=== PATIENT | female | born 1970 ===

== ENCOUNTER 2016-05-01 10:16 | Outpatient (CLI) | payer OTHER ==
--- NOTE | 2016-05-01 12:47 | DIAGNOSTIC IMAGING REPORT ---
PROCEDURE: XR UPPER GI WITH SBFT INDICATION: Heartburn. Nausea. Abdominal pain. TECHNIQUE: Double contrast study. Fluoroscopy time, 2.2 minutes; 1614.76 mGy. 92 fluoroscopic images (including cinefluoroscopy). Images were acquired over a 1 hour 20-minute time interval COMPARISON: None. FINDINGS: Preliminary senior director creative services view is normal. Pharyngoesophagus is normal. Moderate gastroesophageal reflux. Esophagus is otherwise normal. Stomach and duodenum are normal. Small bowel pattern is normal, including terminal ileum, with normal transit time (1 hour). IMPRESSION: 1. Moderate gastroesophageal reflux. 2. Otherwise negative upper GI and small bowel series.
--- NOTE | 2016-05-01 12:47 | DIAGNOSTIC IMAGING REPORT ---
PROCEDURE: XR UPPER GI WITH SBFT INDICATION: Heartburn. Nausea. Abdominal pain. TECHNIQUE: Double contrast study. Fluoroscopy time, 2.2 minutes; 1614.76 mGy. 92 fluoroscopic images (including cinefluoroscopy). Images were acquired over a 1 hour 20-minute time interval COMPARISON: None. FINDINGS: Preliminary black oxide operator view is normal. Pharyngoesophagus is normal. Moderate gastroesophageal reflux. Esophagus is otherwise normal. Stomach and duodenum are normal. Small bowel pattern is normal, including terminal ileum, with normal transit time (1 hour). IMPRESSION: 1. Moderate gastroesophageal reflux. 2. Otherwise negative upper GI and small bowel series.
[2016-05-04] MEDS ORDERED: AMBIEN10 MG PO (16:45)
[2016-05-04] MEDS ORDERED: PRILOSEC20 MG PO (16:46)
[2016-05-04] MEDS ORDERED: ATIVAN2 MG PO (16:46)
[2016-05-04] MEDS ORDERED: FLUOXETINE HCL60 MG PO (16:47)
[2016-05-04] MEDS ORDERED: TRAZODONE HCL100 MG PO (16:48)
[2016-05-04] MEDS ORDERED: DRONABINOL2.5 MG PO (16:49)
[2016-05-04] MEDS ORDERED: PERCOCET1 TA1 PO (16:50)
[2016-05-04] MEDS ORDERED: SYMBICORT1 AE1 IN (16:50)
== END 2016-05-01 23:00 ==
LOC: XR SRH 10:16
DX: K21.9 Gastro-esophageal reflux disease without esophagitis (principal)

== ENCOUNTER 2016-07-21 18:12 | Emergency (ER) | payer OTHER ==
[~2016-07-21 18:12] MED LIST: AMBIEN10 MG PO; ATIVAN2 MG PO; DRONABINOL2.5 MG PO; FLUOXETINE HCL60 MG PO; PERCOCET1 TA1 PO; PRILOSEC20 MG PO; SYMBICORT1 AE1 IN; TRAZODONE HCL100 MG PO
--- NOTE | 2016-07-21 20:00 | ED NURSING NOTES ---
Clinical Report - Nurses [facility] [address] [place] [address] 07/21/2016 18:15 Patient: HO GOMEZ TRIAGE Triage time 1830. Chief Complaint: PALPITATIONS. --18:48 Neda Cardoso R.N. 18:30 07/21/16. BP: 124/74. HR: 89. RR: 18. O2 saturation: 99% on room air. Temp: 99.4 F. Pain level now: 10/08. --20:09 Neda Cardoso R.N. Weight: 77.1 kg stated. Height/Length: 67 inches Per Patient. BMI: 26.6. --18:29 Neda Cardoso R.N. Medications DULoxetine HCl Oral 120 mg. LORazepam Oral 2 mg. PriLOSEC Oral 20 mg. TraZODone HCl Oral 400 mg. Zolpidem Tartrate Oral 10 mg. --18:38 Neda Cardoso R.N. Systane Ophthalmic. --18:38 Neda Cardoso R.N. Dronabinol Oral (Capsule 2.5 mg), 8 hours. --18:39 Neda Cardoso R.N. Symbicort Inhalation. --18:39 Neda Cardoso R.N. Probiotic Oral. --18:40 Neda Cardoso R.N. Oxycodone-Acetaminophen ER Oral 5/325, prn. --18:41 Neda Cardoso R.N. Wellbutrin Oral 300, daily. --18:41 Neda Cardoso R.N. [id number] Oral. --18:41 Neda Cardoso R.N. Loratadine Oral. --18:42 Neda Cardoso R.N. Allergies Amoxicillin.(nausea) --18:43 Neda Cardoso R.N. Psych medications. (tardive dyskinesia) --18:43 Neda Cardoso R.N. History Historian: significant other and patient. Accompanied by friend. ( patient started on Welbutrin and when she increased the dose from 150 mg to 300 mg she started noticing she felt like she was having heart palpitations). She has had weakness, a cough and difficulty breathing. Reports muscle aches. SOCIAL HX: Smoker- current status unknown. History of drug use: marijuana. Recently used drugs today. NUTRITIONAL RISK ASSESSMENT: The nutritional risk assessment revealed no deficiencies. FUNCTIONAL ASSESSMENT: Functional assessment: no impairments noted. LEARNING NEEDS ASSESSMENT: The learning needs assessment revealed no barriers. SKIN INTEGRITY ASSESSMENT: Skin integrity risk assessment completed. No skin integrity risk identified. --18:48 Neda Cardoso R.N. PROBLEMS: Heart Murmur. Hiatal Hernia. Acid reflux. Staph blepharitis. Tardive dyskinesia. PTSD. Bipolar Disorder. --18:45 Neda Cardoso R.N. ADDITIONAL SURGERIES: Appendectomy. Left knee. --18:45 Neda Cardoso R.N. PHYSICAL ASSESSMENT 18:57 07/21/16. Ambulatory to room. Patient gowned. GENERAL / NEURO / PSYCH: Alert. Appears in no acute distress. Decreased awareness. Mood/affect abnormal. HEENT: No facial asymmetry noted. Mucous membranes are pink. RESPIRATORY: Cough (marijuana). The patient is a smoker. CVS: Capillary refill less than 2 seconds. Pulses within normal limits. GI / : Abdominal distention (patient states she feels full of gas). Normal bowel sounds. Abdominal tenderness. SKIN: Skin intact. Skin is pale. Skin is warm and dry. Normal skin turgor. --18:57 Neda Cardoso R.N. NURSING PROGRESS NOTES EKG time: (1854). EKG was performed by a tech and shown to the ED physician. Call light placed in reach. Side rails up x 1. Bed placed in lowest position. Brakes of bed on. Patient ready for evaluation- ED physician notified. --18:57 Neda Cardoso R.N. EKG time: (19:02). EKG was performed by a tech and shown to the ED physician. --19:02 Aimee Pope 19:40 07/21/2016 Zofran ODT (Ondansetron) PO Oral Disintegrating Tablets 4 mg given. Allergies verified and confirmed 5 rights. --19:40 Neda Cardoso R.N. DISPOSITION / DISCHARGE 20:07 07/21/16. Departure time: 2006. No learning barriers present. Discharge instructions provided and reviewed with the patient and spouse. Patient and spouse verbalized understanding. Written instructions provided in Greenlandic. The patient was discharged home and accompanied by spouse. She left the Emergency Department ambulatory and via private vehicle. Spouse driving. --20:07 Neda Cardoso R.N. 20:05 07/21/16. BP: 118/74. HR: 77. RR: 20. O2 saturation: 99% on room air. Temp: 99.1 F. Pain level now: 08/08. --20:07 Neda Cardoso R.N. Locked/Released at 07/21/2016 20:09 by Neda Cardoso R.N.
--- NOTE | 2016-07-21 20:00 | ED ORDER SUMMARY ---
..... Patient: HO GOMEZ OrderSheet [facility] VisitID: [id number] [address] [place] [address] 46y, F Registration Date/Time: 07/21/2016 ORDER SHEET Weight: 77.1 kg (stated) Allergies: Amoxicillin, Psych medications GENERAL ORDERS: EKG - ER Repeat Stat (18:38 07/21/2016 Cornell MANJARREZ) (Ack 18:46 OSnell) (19:06 IJurca ER Tech1) MEDICATION ORDERS: Zofran ODT PO 4 mg (NOW) (19:39 07/21/2016 TCjoselin R.N. verbal order read back to Cornell MANJARREZ) (19:40 TChapmmelina R.N.) Verbal order read back and verified IV FLUIDS: ORDER SHEET NOTES: [Electronically signed by Neda Cardoso R.N. (20:09 07/21/2016)] [Electronically signed by Cody Pickens MD (16:29 07/23/2016)] [Electronically locked/signed by Neda Cardoso R.N. (20:09 07/21/2016)]
--- NOTE | 2016-07-21 20:00 | ED CLINICAL REPORT ---
Clinical Report - Physicians/Mid Levels [facility] [address] [place] [address] 07/21/2016 18:15 Patient: HO GOMEZ Time Seen: 18:33. Arrived- By private vehicle. Historian- patient and family. HISTORY OF PRESENT ILLNESS Chief Complaint: FLUTTERING FEELING IN CHEST. At its maximum, severity described as moderate. When seen in the E.D., severity described as mild. Modifying factors. Not worsened by anything. This started today Ms Gomez had her Wellbutrin doubled in dosage recently. Since then she has noticed an intermittent fluttery feeling inside her chest. The fluttering last 2 to 10 seconds and occurs 2-3 times per hour. She and her family are concerned that this cold be a heart attack. The patient has had fatigue, a sleep problem, muscle aches and weakness. (The general symptoms above are all old.). Recent medical care: The patient was seen recently by a health care provider. ( Increased Wellburin dose recently). REVIEW OF SYSTEMS No fever, sore throat, cough, difficulty breathing or chest pain. PAST HISTORY PCP: Dr Vann PROBLEMS: Heart Murmur. Hiatal Hernia. Acid reflux. Staph blepharitis. Tardive dyskinesia. PTSD. Bipolar Disorder. ADDITIONAL SURGERIES: Appendectomy. Left knee. ADDITIONAL NOTES The nursing notes have been reviewed. PHYSICAL EXAM Vital Signs: 07/21/2016 20:05 BP: 118/74. HR: 77. RR: 20. O2 saturation: 99%. Temp: 99.1 F. Pain level now: 08/08. 07/21/2016 18:47 BP: 124/74. HR: 89. RR: 18. O2 saturation: 99%. Temp: 99.4 F. Pain level now: 09/08. 07/21/2016 18:30 BP: 124/74. HR: 89. RR: 18. O2 saturation: 99%. Temp: 99.4 F. Pain level now: 10/08. Appearance: Alert. No acute distress. Eyes: Pupils equal, round and reactive to light. ENT: Pharynx normal. Neck: Normal inspection. Neck supple. CVS: Normal heart rate and rhythm. Heart sounds normal. Respiratory: No respiratory distress. Breath sounds normal. Abdomen: Soft and nontender. Extremities: Extremities exhibit normal ROM. No lower extremity edema. LABS, X-RAYS, AND EKG EKG: No acute process. No acute ischemia. Normal P waves. Normal SABRINA. Normal QRS complex. Decreased QRS voltage. Normal axis. Normal ST and T waves. The study has been independently viewed by me. The EKG appears to be a good tracing. PROGRESS AND PROCEDURES Course of Care: Reviewed data on Wellbutrin. 5% can have some dysrrhythmia with this medication. Disposition: Discharged. Condition: good. CLINICAL IMPRESSION Palpitations INSTRUCTIONS (THE FLUTTERING FEELING IS PROBABLY EXTRA HEART BEATS. YOUR EKG WAS NORMAL GO BACK TO YOUR OLD WELLBUTIRIN DOSE UNTIL YOU TALK TO YOUR OWN DR). Follow-up: Follow up with doctor PHYLLIS. Understanding of the discharge instructions verbalized by patient and family. (Electronically signed by Cody Pickens MD 07/23/2016 16:29)
--- NOTE | 2016-07-21 20:00 | ED CLINICAL REPORT ---
Clinical Report - Physicians/Mid Levels [facility] [address] [place] [address] 07/21/2016 18:15 Patient: HO GOMEZ Time Seen: 18:33. Arrived- By private vehicle. Historian- patient and family. HISTORY OF PRESENT ILLNESS Chief Complaint: FLUTTERING FEELING IN CHEST. At its maximum, severity described as moderate. When seen in the E.D., severity described as mild. Modifying factors. Not worsened by anything. This started today Ms Gomez had her Wellbutrin doubled in dosage recently. Since then she has noticed an intermittent fluttery feeling inside her chest. The fluttering last 2 to 10 seconds and occurs 2-3 times per hour. She and her family are concerned that this cold be a heart attack. The patient has had fatigue, a sleep problem, muscle aches and weakness. (The general symptoms above are all old.). Recent medical care: The patient was seen recently by a health care provider. ( Increased Wellburin dose recently). REVIEW OF SYSTEMS No fever, sore throat, cough, difficulty breathing or chest pain. PAST HISTORY PCP: Dr Vann PROBLEMS: Heart Murmur. Hiatal Hernia. Acid reflux. Staph blepharitis. Tardive dyskinesia. PTSD. Bipolar Disorder. ADDITIONAL SURGERIES: Appendectomy. Left knee. ADDITIONAL NOTES The nursing notes have been reviewed. PHYSICAL EXAM Vital Signs: 07/21/2016 20:05 BP: 118/74. HR: 77. RR: 20. O2 saturation: 99%. Temp: 99.1 F. Pain level now: 08/08. 07/21/2016 18:47 BP: 124/74. HR: 89. RR: 18. O2 saturation: 99%. Temp: 99.4 F. Pain level now: 09/08. 07/21/2016 18:30 BP: 124/74. HR: 89. RR: 18. O2 saturation: 99%. Temp: 99.4 F. Pain level now: 10/08. Appearance: Alert. No acute distress. Eyes: Pupils equal, round and reactive to light. ENT: Pharynx normal. Neck: Normal inspection. Neck supple. CVS: Normal heart rate and rhythm. Heart sounds normal. Respiratory: No respiratory distress. Breath sounds normal. Abdomen: Soft and nontender. Extremities: Extremities exhibit normal ROM. No lower extremity edema. LABS, X-RAYS, AND EKG EKG: No acute process. No acute ischemia. Normal P waves. Normal SABRINA. Normal QRS complex. Decreased QRS voltage. Normal axis. Normal ST and T waves. The study has been independently viewed by me. The EKG appears to be a good tracing. PROGRESS AND PROCEDURES Course of Care: Reviewed data on Wellbutrin. 5% can have some dysrrhythmia with this medication. Disposition: Discharged. Condition: good. CLINICAL IMPRESSION Palpitations INSTRUCTIONS (THE FLUTTERING FEELING IS PROBABLY EXTRA HEART BEATS. YOUR EKG WAS NORMAL GO BACK TO YOUR OLD WELLBUTIRIN DOSE UNTIL YOU TALK TO YOUR OWN DR). Follow-up: Follow up with doctor PHYLLIS. Understanding of the discharge instructions verbalized by patient and family. (Electronically signed by Cody Pickens MD 07/23/2016 16:29)
--- NOTE | 2016-07-21 20:00 | ED NURSING NOTES ---
Clinical Report - Nurses [facility] [address] [place] [address] 07/21/2016 18:15 Patient: HO GOMEZ TRIAGE Triage time 1830. Chief Complaint: PALPITATIONS. --18:48 Neda Cardoso R.N. 18:30 07/21/16. BP: 124/74. HR: 89. RR: 18. O2 saturation: 99% on room air. Temp: 99.4 F. Pain level now: 10/08. --20:09 Neda Cardoso R.N. Weight: 77.1 kg stated. Height/Length: 67 inches Per Patient. BMI: 26.6. --18:29 Neda Cardoso R.N. Medications DULoxetine HCl Oral 120 mg. LORazepam Oral 2 mg. PriLOSEC Oral 20 mg. TraZODone HCl Oral 400 mg. Zolpidem Tartrate Oral 10 mg. --18:38 Neda Cardoso R.N. Systane Ophthalmic. --18:38 Neda Cardoso R.N. Dronabinol Oral (Capsule 2.5 mg), 8 hours. --18:39 Neda Cardoso R.N. Symbicort Inhalation. --18:39 Neda Cardoso R.N. Probiotic Oral. --18:40 Neda Cardoso R.N. Oxycodone-Acetaminophen ER Oral 5/325, prn. --18:41 Neda Cardoso R.N. Wellbutrin Oral 300, daily. --18:41 Neda Cardoso R.N. F63-[id number] Oral. --18:41 Neda Cardoso R.N. Loratadine Oral. --18:42 Neda Cardoso R.N. Allergies Amoxicillin.(nausea) --18:43 Neda Cardoso R.N. Psych medications. (tardive dyskinesia) --18:43 Neda Cardoso R.N. History Historian: significant other and patient. Accompanied by friend. ( patient started on Welbutrin and when she increased the dose from 150 mg to 300 mg she started noticing she felt like she was having heart palpitations). She has had weakness, a cough and difficulty breathing. Reports muscle aches. SOCIAL HX: Smoker- current status unknown. History of drug use: marijuana. Recently used drugs today. NUTRITIONAL RISK ASSESSMENT: The nutritional risk assessment revealed no deficiencies. FUNCTIONAL ASSESSMENT: Functional assessment: no impairments noted. LEARNING NEEDS ASSESSMENT: The learning needs assessment revealed no barriers. SKIN INTEGRITY ASSESSMENT: Skin integrity risk assessment completed. No skin integrity risk identified. --18:48 Neda Cardoso R.N. PROBLEMS: Heart Murmur. Hiatal Hernia. Acid reflux. Staph blepharitis. Tardive dyskinesia. PTSD. Bipolar Disorder. --18:45 Neda Cardoso R.N. ADDITIONAL SURGERIES: Appendectomy. Left knee. --18:45 Neda Cardoso R.N. PHYSICAL ASSESSMENT 18:57 07/21/16. Ambulatory to room. Patient gowned. GENERAL / NEURO / PSYCH: Alert. Appears in no acute distress. Decreased awareness. Mood/affect abnormal. HEENT: No facial asymmetry noted. Mucous membranes are pink. RESPIRATORY: Cough (marijuana). The patient is a smoker. CVS: Capillary refill less than 2 seconds. Pulses within normal limits. GI / : Abdominal distention (patient states she feels full of gas). Normal bowel sounds. Abdominal tenderness. SKIN: Skin intact. Skin is pale. Skin is warm and dry. Normal skin turgor. --18:57 Neda Cardoso R.N. NURSING PROGRESS NOTES EKG time: (1854). EKG was performed by a tech and shown to the ED physician. Call light placed in reach. Side rails up x 1. Bed placed in lowest position. Brakes of bed on. Patient ready for evaluation- ED physician notified. --18:57 Neda Cardoso R.N. EKG time: (19:02). EKG was performed by a tech and shown to the ED physician. --19:02 Aimee Pope 19:40 07/21/2016 Zofran ODT (Ondansetron) PO Oral Disintegrating Tablets 4 mg given. Allergies verified and confirmed 5 rights. --19:40 Neda Cardoso R.N. DISPOSITION / DISCHARGE 20:07 07/21/16. Departure time: 2006. No learning barriers present. Discharge instructions provided and reviewed with the patient and spouse. Patient and spouse verbalized understanding. Written instructions provided in Gibraltarian. The patient was discharged home and accompanied by spouse. She left the Emergency Department ambulatory and via private vehicle. Spouse driving. --20:07 Neda Cardoso R.N. 20:05 07/21/16. BP: 118/74. HR: 77. RR: 20. O2 saturation: 99% on room air. Temp: 99.1 F. Pain level now: 08/08. --20:07 Neda Cardoso R.N. Locked/Released at 07/21/2016 20:09 by Neda Cardoso R.N.
--- NOTE | 2016-07-21 20:00 | ED ORDER SUMMARY ---
..... Patient: HO GOMEZ OrderSheet [facility] VisitID: [id number] [address] [place] [address] 46y, F Registration Date/Time: 07/21/2016 ORDER SHEET Weight: 77.1 kg (stated) Allergies: Amoxicillin, Psych medications GENERAL ORDERS: EKG - ER Repeat Stat (18:38 07/21/2016 Cornell MANJARREZ) (Ack 18:46 OSnell) (19:06 IJurca ER Tech1) MEDICATION ORDERS: Zofran ODT PO 4 mg (NOW) (19:39 07/21/2016 TCjoselin R.N. verbal order read back to Cornell MANJARREZ) (19:40 TChapmmelina R.N.) Verbal order read back and verified IV FLUIDS: ORDER SHEET NOTES: [Electronically signed by Neda Cardoso R.N. (20:09 07/21/2016)] [Electronically signed by Cody Pickens MD (16:29 07/23/2016)] [Electronically locked/signed by Neda Cardoso R.N. (20:09 07/21/2016)]
--- NOTE | 2016-07-23 16:29 | ED MAR SUMMARY ---
..... Medication Administration Record [facility] [address] [place] [address] Patient: HO GOMEZ Visit ID: [id number] 46y, F Weight: 77.1 kg Height/Length: 67 in BMI: 26.6 ALLERGIES: Amoxicillin, Psych medications Given 19:40 07/21/2016 Neda Cardoso R.N. Medication Administered: ZOFRAN ODT [PO] (ONDANSETRON), Dose: 4 mg Oral Disintegrating Tablets PO. Medication Ordered: Zofran ODT PO 4 mg (NOW).
--- NOTE | 2016-07-23 16:29 | ED MED RECONCILIATION SUMMARY ---
Patient: HO GOMEZ Medication Reconciliation Report [facility] VisitID: [id number] [address] [place] [address] 46y, F Registration Date/Time: 07/21/2016 Weight: 77.1 kg Height/Length: 67 in. BMI: 26.6 ALLERGIES: Amoxicillin, Psych medications The patient's Home Medications are listed below: THE FOLLOWING MEDICATIONS NEED TO BE RECONCILED: Q87-Udehez Oral Dronabinol Oral (2.5 mg), 8 hours DULoxetine HCl Oral 120 mg Loratadine Oral LORazepam Oral 2 mg Oxycodone-Acetaminophen ER Oral 5/325, prn PriLOSEC Oral 20 mg Probiotic Oral Symbicort Inhalation Systane Ophthalmic TraZODone HCl Oral 400 mg Wellbutrin Oral 300, daily Zolpidem Tartrate Oral 10 mg The source(s) of the original Home Medication information: Not obtained. The following Medications were given to the patient in the Emergency Department: Zofran ODT [PO] PO 4 mg, administered: 07/21/2016 7:40:00 PM The following Medications were prescribed to the patient: None.
--- NOTE | 2016-07-23 16:29 | ED MAR SUMMARY ---
..... Medication Administration Record [facility] [address] [place] [address] Patient: HO GOMEZ Visit ID: [id number] 46y, F Weight: 77.1 kg Height/Length: 67 in BMI: 26.6 ALLERGIES: Amoxicillin, Psych medications Given 19:40 07/21/2016 Neda Cardoso R.N. Medication Administered: ZOFRAN ODT [PO] (ONDANSETRON), Dose: 4 mg Oral Disintegrating Tablets PO. Medication Ordered: Zofran ODT PO 4 mg (NOW).
--- NOTE | 2016-07-23 16:29 | ED MED RECONCILIATION SUMMARY ---
Patient: HO GOMEZ Medication Reconciliation Report [facility] VisitID: [id number] [address] [place] [address] 46y, F Registration Date/Time: 07/21/2016 Weight: 77.1 kg Height/Length: 67 in. BMI: 26.6 ALLERGIES: Amoxicillin, Psych medications The patient's Home Medications are listed below: THE FOLLOWING MEDICATIONS NEED TO BE RECONCILED: L44-Abkirv Oral Dronabinol Oral (2.5 mg), 8 hours DULoxetine HCl Oral 120 mg Loratadine Oral LORazepam Oral 2 mg Oxycodone-Acetaminophen ER Oral 5/325, prn PriLOSEC Oral 20 mg Probiotic Oral Symbicort Inhalation Systane Ophthalmic TraZODone HCl Oral 400 mg Wellbutrin Oral 300, daily Zolpidem Tartrate Oral 10 mg The source(s) of the original Home Medication information: Not obtained. The following Medications were given to the patient in the Emergency Department: Zofran ODT [PO] PO 4 mg, administered: 07/21/2016 7:40:00 PM The following Medications were prescribed to the patient: None.
--- NOTE | 2016-07-23 16:29 | ED DISCHARGE INSTRUCTIONS ---
Patient: HO GOMEZ General Instructions [facility] VisitID: [id number] [place] [address] 46y, F Registration Date/Time: 07/21/2016 Palpitations INSTRUCTIONS (THE FLUTTERING FEELING IS PROBABLY EXTRA HEART BEATS. YOUR EKG WAS NORMAL GO BACK TO YOUR OLD [employer] DOSE UNTIL YOU TALK TO YOUR OWN DR). Follow-up: Follow up with doctor PHYLLIS. Understanding of the discharge instructions verbalized by patient and family. ADDITIONAL INFORMATION Arrhythmia Electrical impulses cause the normal heart to beat 60 to 100 times a minute. These impulses come from a natural pacemaker deep inside the heart muscle. Each impulse causes the heart muscle to contract. This causes the blood to flow through the heart and out to the tissues and organs of your body. An arrhythmia is a change from the normal speed or pattern of these electrical impulses. This can cause the heart to beat too fast (tachycardia); or too slow (bradycardia); or in an unsteady pattern (irregular rhythm). Symptoms of arrhythmias Different people experience arrhythmias differently. Sometimes they may not have symptoms, but just notice a change in their pulse. Symptoms can include: Fluttering feeling in the chest Shortness of breath Chest pain or pressure Lightheadedness or dizziness Fainting or nearly fainting Palpitations Tiredness, fatigue, or weakness Causes of arrhythmias Arrhythmias are most often due to heart disease such as: Coronary artery disease (arteriosclerosis) Disease of the heart valves Enlarged heart High blood pressure Heart failure Other causes ofarrhythmia include: Certain medicines (such as asthma inhalers and decongestants) Some herbal supplements Cardiac stimulant drugs (such as cocaine, amphetamine, diet pills, certain decongestant cold medicines, caffeine, and nicotine) Excessive alcohol use Medical conditions such as thyroid disease, anemia, anxiety, and panic disorder Arrythmias can often be prevented. The cause and type of arrhythmia determines the best treatment. Sometimes your doctor may want to monitor your heart rate over a 24-hour period or longer. This can help identify the cause of your arrhythmia and find the best treatment. This can be done with a Holter monitor,a portable EKG recording device attached by wires to your chest. You can carry this with you as you perform your routine activities during the monitoring period. Home care Avoid cardiac stimulants (such as cocaine, amphetamine, diet pills, certain decongestant cold medicines, caffeine, and nicotine). If you smoke, stop smoking. Contact your doctor or a local stop-smoking program for help. Tell your doctor about any prescription, [id number] or herbal medicines you take. These may be affecting your heart rhythm. Follow-up care Follow up with your health care provider or as advised by our staff. If a Holter monitor has been recommended, contact the cardiologistyou have been referred toas soon as you canpick up the device. Other outpatient tests may also be arranged for you at that time. Call 911 This is the fastest and safest way to get to the emergency department. The paramedics can also start treatment on the way to the hospital, if needed. Don'twait until your symptoms are severe to call 911. Other reasons to call 911 besides chest pain include: Chest, shoulder, arm, neck, or back pain Shortness of breath Feeling lightheaded, faint, or dizzy Rapid heart beat Slower than usual heart rate compared to your normal Angina withweakness, dizziness, fainting, heavy sweating, nausea, or vomiting Extreme drowsiness, or confusion Weakness of an arm or leg or one side of the face Difficulty with speech or vision When to seek medical care Remember, things are not always like they are on TV. Sometimes it is not so obvious. You may only feel weak or just "not right." If it is not clear or if you have any doubt, call for advice. Seek help for chest pain, or it feels different from usual, even if your symptoms are mild. Do not drive yourself. Have someone else drive. If no one can drive you, call 911. If your doctor has given you medicines to take when you have symptoms, take them, but do not delay getting help while trying to find them. Do not delay. Fast diagnosis and treatment can prevent or limit the amount of heart damage during a heart attack or stroke. Do not go to your doctor's ofice or a clinic because they will not be able to provide all of the testing or treatment required for this condition. You have been given the following additional information: Arrhythmia, Unspecified (Electronically signed by Cody Pickens MD 07/23/2016 16:29)
== END 2016-07-21 20:05 | disposition home or self-care (01) ==
LOC: ED SRH 18:12
DX: R00.2 Palpitations (principal); K21.9 Gastro-esophageal reflux disease without esophagitis; Z79.899 Other long term (current) drug therapy; Z79.51 Long term (current) use of inhaled steroids; Z88.1 Allergy status to other antibiotic agents; Z88.8 Allergy status to other drugs, medicaments and biological substances

== ENCOUNTER 2016-08-23 11:08 | Outpatient (CLI) | payer OTHER ==
--- NOTE | 2016-08-23 12:20 | DIAGNOSTIC IMAGING REPORT ---
PROCEDURE: US ABDOMEN ULTRASOUND-COMPLETE INDICATION: NAUSEA,BLOATING,GERD TECHNIQUE: Santacruz scale and color Doppler sonographic images of the abdomen were obtained without comparison. COMPARISON: None. FINDINGS: The liver demonstrates increased echogenicity. The gallbladder is normal without stones or sludge. The wall is normal thickness measuring 2 mm No pericholecystic fluid or Yoder sign. The extrahepatic common duct is normal measuring 3.7 mm The visualized pancreas is normal without ductal dilatation or peripancreatic fluid collection. The abdominal aorta is normal in its course and caliber. The retrohepatic inferior vena cava is patent. There is appropriate hepatopetal flow in the portal vein. The right kidney measures 11.1 cm in length. The left kidney measures 10.5 cm in length. Both kidneys demonstrate normal morphology and cortical thickness without hydronephrosis, cyst, solid mass, or shadowing calculus. Color Doppler imaging demonstrates normal blood flow in each kidney. The spleen is normal in size measuring 10.6 cm in length. There is no perihepatic or perisplenic ascites. IMPRESSION: 1. Fatty liver
== END 2016-08-23 23:00 ==
LOC: US SRH 11:08
DX: K76.0 Fatty (change of) liver, not elsewhere classified (principal)